=== PATIENT | female | born 1980 | race Caucasian/White ===

== ENCOUNTER 2024-12-31 09:52 | Emergency (ER) | payer MEDICAID, SELFPAY ==
--- NOTE | 2024-12-31 09:57 | ECG_ITS ---
[facility] 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 Measurements Intervals [place] Rate: 57 P: 142 [place]: 103 QRS: 106 QRSD: 105 T: 93 QT: 480 QTc: 470 Interpretive Statements ECTOPIC ATRIAL BRADYCARDIA WITH SHORT [place] INTERVAL WITH OCCASIONAL SUPRAVENTRICULAR PREMATURE COMPLEXES PATTERN CONSISTENT WITH PULMONARY DISEASE POSSIBLE RIGHT VENTRICULAR HYPERTROPHY [SOME/ALL OF: PROMINENT R IN V1, LATE TRANSITION, RAD, BHUPINDER, SSS] POSSIBLE INFERIOR MYOCARDIAL INFARCTION , PROBABLY OLD [30 ms Q WAVE IN II/aVF] ST DEVIATION AND MODERATE T-WAVE ABNORMALITY, CONSIDER ANTEROLATERAL ISCHEMIA [-0.1+ mV T-WAVE IN V3-V6] No previous ECG available for comparison Electronically Signed On 01-03-2025 22:09:24 PETROLOGY TEACHER by Darian Mccracken M.D. [id number]
[2024-12-31 10:00] VITALS: BP 130/90; PULSE 54; RESP 16; TEMP 36.8; O2SAT 98; BMI 26.5
[2024-12-31 11:08] VITALS: BP 114/62; PULSE 56; RESP 28; O2SAT 97
--- NOTE | 2024-12-31 11:09 | W.ED.ARRPALP ---
Documented by User: NELSY Ashby 12/31/24 13:00 HPI - Arrhythmia/Palpitations General: Chief Complaint: Arrhythmia/Palpitations Stated Complaint: hb is fast / cough Time Seen by Provider: 12/31/24 10:52 Source: patient and family Mode of arrival: ambulatory Limitations: no limitations History of Present Illness: Patient is a nice 44 female who is originally from [facility] recently moved to [place] here with concerns of persistent atrial fibrillation. Patient states she was diagnosed with atrial fibrillation years ago and it is normally paroxysmal. She states she takes rivaroxaban as well as metoprolol succinate 47.5mg 2 tablets twice daily (medication from [facility]). Patient states she knows when she goes in and out of atrial fibrillation. She states she is here in the emergency department today because she has never been in a-fib this long (about a month). Patient not having any lightheadedness or dizziness or passing out episodes. She arrives in no acute distress. She is not having any chest pain, shortness of breath, or difficulty breathing. MD complaint: irregular heart beat and atrial fibrillation Onset (ago): month(s) Duration: constant Severity: mild Arrhythmia history: atrial fibrillation Associated symptoms: Reports no associated symptoms; Deny nausea, pre-syncope, syncope or vomiting Related Data Home Medications Medication Instructions Recorded Confirmed Myloc Cr 47.5 mg PO QID 12/31/24 12/31/24 magnesium 200 mg tablet 200 mg PO QID 12/31/24 12/31/24 rivaroxaban 20 mg tablet (Xarelto) 20 mg PO DAILY 12/31/24 12/31/24 Allergies Allergy/AdvReac Type Severity Reaction Status Date / Time Penicillins Allergy ADR-Nausea Verified 12/31/24 10:06 Review of Systems Const: Denies: fever(s), chills, body aches, fatigue or malaise Card: Reports: irregular heart rhythm; Denies: chest pain, edema, lightheadedness, syncope, pre-syncope or orthopnea Resp: Denies: dyspnea GI: Denies: nausea or vomiting Neuro: Denies: headache(s) or dizziness Physical Exam Const: COMMON NORMALS: no acute distress, average body habitus, patient oriented x3, no limitations, healthy appearing, alert and well nourished GENERAL APPEARANCE: cooperative Neck/C-Spine: COMMON NORMALS: no JVD Chest: COMMONS NORMALS: normal inspection of the chest and normal palpation of entire chest wall Resp: COMMON NORMALS: normal respiratory effort and clear to auscultation bilaterally AUSCULTATION: clear to auscultation bilaterally Cardio: COMMON NORMALS: no JVD RATE: bradycardic RHYTHM: abnormal rhythm irregularly irregular Extremity: COMMON NORMALS: capillary refill normal, no clubbing, cyanosis or edema, no calf tenderness and no pedal edema GENERAL: Yes normal exam except as noted Neuro: COMMON NORMALS: patient oriented x3 SENSORIUM/ORIENTATION: Yes alert Course Vital Signs: Vital signs: Vital Signs Temperature 98.2 F 12/31/24 10:00 Pulse Rate 51 L 12/31/24 12:33 Respiratory Rate 22 H 12/31/24 11:35 Blood Pressure 107/62 12/31/24 12:33 Pulse Oximetry 93 12/31/24 12:33 Oxygen Delivery Me thod Room Air 12/31/24 10:00 MDM - Arrhythmia/Palpitations Medical Decision Making Patient here with a longstanding history of paroxysmal atrial fibrillation. Patient concerned that she has had persistent symptoms over the past month which is abnormal for her. He is not having any concerning symptoms on history or physical exam. Vitals here are stable apart from she has (at times) bradycardia with rates anywhere from 40s to 60s. Spoke to Dr. Mcgraw-we will have her decrease her current dose of her rate drug, if needed, based on rates at home. She will continue with her anticoagulation and we will have case management get her set up with cardiology. Return ED precautions discussed. Medical Records I reviewed the patient's medical records. Lab Data I reviewed the patient's lab results. 12/31/24 11:05 12/31/24 11:05 Laboratory Results WBC 4.14 10^3/uL (3.29-11.43) 12/31/24 11:05 RBC 3.91 10^6/uL (3.85-5.65) 12/31/24 11:05 Hgb 11.40 g/dL (11.27-16.99) 12/31/24 11:05 Hct 35.5 % (36-47) L 12/31/24 11:05 MCV 90.8 fl (85-98) 12/31/24 11:05 MCH 29.2 pg (27-33) 12/31/24 11:05 MCHC 32.1 g/dL (30-55) 12/31/24 11:05 RDW 13.4 % (12.1-15.1) 12/31/24 11:05 Plt Count 253 10^3/cmm (157-399) 12/31/24 11:05 MPV 9.4 fL (7.4-10.4) 12/31/24 11:05 Neut % (Auto) 43.6 % 12/31/24 11:05 Lymph % (Auto) 38.6 % 12/31/24 11:05 Ellis % (Auto) 14.0 % 12/31/24 11:05 Eos % (Auto) 1.9 % 12/31/24 11:05 Baso % (Auto) 0.7 % 12/31/24 11:05 Neut # (Auto) 1.80 10^3/uL (1.8-7.7) 12/31/24 11:05 Lymph # (Auto) 1.6 10^3/uL (0.8-4.8) 12/31/24 11:05 Ellis # (Auto) 0.6 10^3/uL (0.2-0.9) 12/31/24 11:05 Eos # (Auto) 0.1 10^3/uL (0.0-0.8) 12/31/24 11:05 Baso # (Auto) 0.0 10^3/uL (0.0-0.1) 12/31/24 11:05 Nucleated RBC % (auto) 0 % 12/31/24 11:05 Nucleated RBCs # 0.0 /100WBC 12/31/24 11:05 Sodium 136 mmol/L (136-145) 12/31/24 11:05 Potassium 4.0 mmol/L (3.5-5.1) 12/31/24 11:05 Chloride 99 mmol/L (98-107) 12/31/24 11:05 Carbon Dioxide 24 mmol/L (22-29) 12/31/24 11:05 Anion Gap 17.0 (5-19) 12/31/24 11:05 BUN 14 mg/dL (6-20) 12/31/24 11:05 Creatinine 0.7 mg/dL (0.5-0.9) 12/31/24 11:05 GFR Calculation 90.9 mL/min (90-130) 12/31/24 11:05 Glucose 101 mg/dL (65-115) 12/31/24 11:05 Calculated Osmolality 283 mOsm/kg (285-295) L 12/31/24 11:05 Calcium 8.9 mg/dL (8.5-10.5) 12/31/24 11:05 Total Bilirubin 0.3 mg/dL (0.15-1.2) 12/31/24 11:05 AST 33 U/L (0-32) H 12/31/24 11:05 ALT 51 U/L (0-33) H 12/31/24 11:05 Alkaline Phosphatase 98 U/L (35-105) 12/31/24 11:05 Total Protein 7.0 g/dL (6.6-8.7) 12/31/24 11:05 Albumin 3.9 g/dL (3.5-5.2) 12/31/24 11:05 Globulin 3.1 g/dL (1.3-4.6) 12/31/24 11:05 TSH 1.11 uIU/mL (0.27-4.20) 12/31/24 11:05 Urine Color Yellow (Yellow) 12/31/24 11:58 Urine Appearance Clear (CLEAR) 12/31/24 11:58 Urine pH 5.5 (5-7) 12/31/24 11:58 Ur Specific [place] 1.008 (1.005-1.030) 12/31/24 11:58 Urine Protein Negative (Negative) 12/31/24 11:58 Urine Glucose (UA) Negative (Normal) 12/31/24 11:58 Urine Ketones Negative (Negative) 12/31/24 11:58 Urine Blood Negative (Negative) 12/31/24 11:58 Urine Nitrate Negative (Negative) 12/31/24 11:58 Urine Bilirubin Negative (Negative) 12/31/24 11:58 Urine Urobilinogen 0.2 mg/dL (Negative) 12/31/24 11:58 Ur Leukocyte Esterase Negative (Negative) 12/31/24 11:58 Urine RBC 0-2 /hpf (0-2) 12/31/24 11:58 Urine WBC 0-5 /hpf (0-5) 12/31/24 11:58 Ur Squamous Epith Cells 0-5 /hpf (0-5) 12/31/24 11:58 Amorphous Sediment Not Reportable 12/31/24 11:58 Urine Bacteria None seen /hpf (NONE) 12/31/24 11:58 Hyaline Casts 0-4 /lpf H 12/31/24 11:58 No radiology studies performed this visit Discharge Plan Discharge Patient Disposition: Home Clinical Impression: Atrial fibrillation Qualifiers: Atrial fibrillation type: persistent (not longstanding) Qualified Code(s): I48.19 - Other persistent atrial fibrillation Condition: Stable Prescriptions: No Action magnesium 200 mg Tablet 200 mg PO QID Xarelto 20 mg Tablet 20 mg PO DAILY Rx Instructions: must administer with evening meal Myloc Cr 47.5 mg PO QID Discharge Orders: Discharge ED (Routine); Ordered 12/31/24 Ordered By: Micaela Miranda Patient Instructions: Atrial Fibrillation Activity Restrictions/Additional Instructions: As we discussed, I placed a cardiology follow-up for further evaluation of your atrial fibrillation. Please continue to monitor rates at home. If rates fall below 50 then I would decrease your metoprolol to one tab twice daily instead of your normal dose of two tabs twice daily. You may return to the emergency department for rates consistently over 100, lightheadedness/dizziness/passing out episodes, or any other concerns you may have. Coding Level of Care Code ED Para Professional for Chg Fwd Documented by User: Rashaad Mcgraw DO 12/31/24 13:39 HPI - Arrhythmia/Palpitations General: Chief Complaint: Arrhythmia/Palpitations Stated Complaint: hb is fast / cough Time Seen by Provider: 12/31/24 10:52 Related Data Home Medications Medication Instructions Recorded Confirmed Myloc Cr 47.5 mg PO QID 12/31/24 12/31/24 magnesium 200 mg tablet 200 mg PO QID 12/31/24 12/31/24 rivaroxaban 20 mg tablet (Xarelto) 20 mg PO DAILY 12/31/24 12/31/24 Allergies Allergy/AdvReac Type Severity Reaction Status Date / Time Penicillins Allergy ADR-Nausea Verified 12/31/24 10:06 Course Vital Signs: Vital signs: Vital Signs Temperature 98.2 F 12/31/24 10:00 Pulse Rate 51 L 12/31/24 12:33 Respiratory Rate 22 H 12/31/24 11:35 Blood Pressure 107/62 12/31/24 12:33 Pulse Oximetry 93 12/31/24 12:33 Oxygen Delivery Me thod Room Air 12/31/24 10:00 MDM - Arrhythmia/Palpitations Medical Decision Making Patient here with a longstanding history of paroxysmal atrial fibrillation. Patient concerned that she has had persistent symptoms over the past month which is abnormal for her. He is not having any concerning symptoms on history or physical exam. Vitals here are stable apart from she has (at times) bradycardia with rates anywhere from 40s to 60s. Spoke to Dr. Mcgraw-we will have her decrease her current dose of her rate drug, if needed, based on rates at home. She will continue with her anticoagulation and we will have case management get her set up with cardiology. Return ED precautions discussed. Chart reviewed and patient discussed with midlevel. Agree with assessment and plan. Lab Data 12/31/24 11:05 12/31/24 11:05 Laboratory Results WBC 4.14 10^3/uL (3.29-11.43) 12/31/24 11:05 RBC 3.91 10^6/uL (3.85-5.65) 12/31/24 11:05 Hgb 11.40 g/dL (11.27-16.99) 12/31/24 11:05 Hct 35.5 % (36-47) L 12/31/24 11:05 MCV 90.8 fl (85-98) 12/31/24 11:05 MCH 29.2 pg (27-33) 12/31/24 11:05 MCHC 32.1 g/dL (30-55) 12/31/24 11:05 RDW 13.4 % (12.1-15.1) 12/31/24 11:05 Plt Count 253 10^3/cmm (157-399) 12/31/24 11:05 MPV 9.4 fL (7.4-10.4) 12/31/24 11:05 Neut % (Auto) 43.6 % 12/31/24 11:05 Lymph % (Auto) 38.6 % 12/31/24 11:05 Ellis % (Auto) 14.0 % 12/31/24 11:05 Eos % (Auto) 1.9 % 12/31/24 11:05 Baso % (Auto) 0.7 % 12/31/24 11:05 Neut # (Auto) 1.80 10^3/uL (1.8-7.7) 12/31/24 11:05 Lymph # (Auto) 1.6 10^3/uL (0.8-4.8) 12/31/24 11:05 Ellis # (Auto) 0.6 10^3/uL (0.2-0.9) 12/31/24 11:05 Eos # (Auto) 0.1 10^3/uL (0.0-0.8) 12/31/24 11:05 Baso # (Auto) 0.0 10^3/uL (0.0-0.1) 12/31/24 11:05 Nucleated RBC % (auto) 0 % 12/31/24 11:05 Nucleated RBCs # 0.0 /100WBC 12/31/24 11:05 Sodium 136 mmol/L (136-145) 12/31/24 11:05 Potassium 4.0 mmol/L (3.5-5.1) 12/31/24 11:05 Chloride 99 mmol/L (98-107) 12/31/24 11:05 Carbon Dioxide 24 mmol/L (22-29) 12/31/24 11:05 Anion Gap 17.0 (5-19) 12/31/24 11:05 BUN 14 mg/dL (6-20) 12/31/24 11:05 Creatinine 0.7 mg/dL (0.5-0.9) 12/31/24 11:05 GFR Calculation 90.9 mL/min (90-130) 12/31/24 11:05 Glucose 101 mg/dL (65-115) 12/31/24 11:05 Calculated Osmolality 283 mOsm/kg (285-295) L 12/31/24 11:05 Calcium 8.9 mg/dL (8.5-10.5) 12/31/24 11:05 Total Bilirubin 0.3 mg/dL (0.15-1.2) 12/31/24 11:05 AST 33 U/L (0-32) H 12/31/24 11:05 ALT 51 U/L (0-33) H 12/31/24 11:05 Alkaline Phosphatase 98 U/L (35-105) 12/31/24 11:05 Total Protein 7.0 g/dL (6.6-8.7) 12/31/24 11:05 Albumin 3.9 g/dL (3.5-5.2) 12/31/24 11:05 Globulin 3.1 g/dL (1.3-4.6) 12/31/24 11:05 TSH 1.11 uIU/mL (0.27-4.20) 12/31/24 11:05 Urine Color Yellow (Yellow) 12/31/24 11:58 Urine Appearance Clear (CLEAR) 12/31/24 11:58 Urine pH 5.5 (5-7) 12/31/24 11:58 Ur Specific [place] 1.008 (1.005-1.030) 12/31/24 11:58 Urine Protein Negative (Negative) 12/31/24 11:58 Urine Glucose (UA) Negative (Normal) 12/31/24 11:58 Urine Ketones Negative (Negative) 12/31/24 11:58 Urine Blood Negative (Negative) 12/31/24 11:58 Urine Nitrate Negative (Negative) 12/31/24 11:58 Urine Bilirubin Negative (Negative) 12/31/24 11:58 Urine Urobilinogen 0.2 mg/dL (Negative) 12/31/24 11:58 Ur Leukocyte Esterase Negative (Negative) 12/31/24 11:58 Urine RBC 0-2 /hpf (0-2) 12/31/24 11:58 Urine WBC 0-5 /hpf (0-5) 12/31/24 11:58 Ur Squamous Epith Cells 0-5 /hpf (0-5) 12/31/24 11:58 Amorphous Sediment Not Reportable 12/31/24 11:58 Urine Bacteria None seen /hpf (NONE) 12/31/24 11:58 Hyaline Casts 0-4 /lpf H 12/31/24 11:58 Discharge Plan Discharge Patient Disposition: Home Clinical Impression: Atrial fibrillation Qualifiers: Atrial fibrillation type: persistent (not longstanding) Qualified Code(s): I48.19 - Other persistent atrial fibrillation Condition: Stable Prescriptions: No Action magnesium 200 mg Tablet 200 mg PO QID Xarelto 20 mg Tablet 20 mg PO DAILY Rx Instructions: must administer with evening meal Myloc Cr 47.5 mg PO QID Discharge Orders: Discharge ED (Routine); Ordered 12/31/24 Ordered By: Micaela Miranda Patient Instructions: Atrial Fibrillation Activity Restrictions/Additional Instructions: As we discussed, I placed a cardiology follow-up for further evaluation of your atrial fibrillation. Please continue to monitor rates at home. If rates fall below 50 then I would decrease your metoprolol to one tab twice daily instead of your normal dose of two tabs twice daily. You may return to the emergency department for rates consistently over 100, lightheadedness/dizziness/passing out episodes, or any other concerns you may have. Coding Level of Care Code ED Para Professional for [place]
[2024-12-31 11:13] LABS: Basophils % 0.7 %; Eosinophils # 0.1 10^3/uL (0.0-0.8); Eosinophils % 1.9 %; Hematocrit 35.5 % (36-47); Lymphocytes # 1.6 10^3/uL (0.8-4.8); Lymphocytes % 38.6 %; Mean Corpuscular HGB Conc 32.1 g/dL (30-55); Mean Corpuscular Hemoglobin 29.2 pg (27-33); Mean Corpuscular Volume 90.8 fl (85-98); Mean Platelet Volume 9.4 fL (7.4-10.4); Monocytes # 0.6 10^3/uL (0.2-0.9); Neutrophils % 43.6 %; Nucleated Red Blood Cells % 0 %; Platelet Count 253 10^3/cmm (157-399); Red Blood Count 3.91 10^6/uL (3.85-5.65); Red Cell Distribution Width 13.4 % (12.1-15.1); White Blood Count 4.14 10^3/uL (3.29-11.43)
[2024-12-31 11:35] VITALS: BP 101/53; PULSE 53; RESP 22; O2SAT 94
[2024-12-31 11:41] LABS: Alanine Aminotransferase 51 U/L (0-33); Albumin Level 3.9 g/dL (3.5-5.2); Alkaline Phosphatase 98 U/L (35-105); Aspartate Amino Transferase 33 U/L (0-32); Blood Urea Nitrogen 14 mg/dL (6-20); Calcium 8.9 mg/dL (8.5-10.5); Carbon Dioxide 24 mmol/L (22-29); Chloride 99 mmol/L (98-107); Creatinine Clr Calc Pharmacy 94.9662; Globulin 3.1 g/dL (1.3-4.6); Glomerular Filtration Rate 90.9 mL/min (90-130); Glucose 101 mg/dL (65-115); Osmolality Calculated 283 mOsm/kg (285-295); Sodium 136 mmol/L (136-145); Thyroid Stimulating Hormone 1.11 uIU/mL (0.27-4.20); Total Bilirubin 0.3 mg/dL (0.15-1.2)
[2024-12-31 12:20] LABS: Bilirubin Urine Negative (Negative); Blood Urine Negative (Negative); Glucose Urine UA Negative (Normal); Ketones Urine Negative (Negative); Leukocyte Esterase Urine Negative (Negative); Nitrate Urine Negative (Negative); Protein Urine Negative (Negative); Specific Gravity, Urine 1.008 (1.005-1.030); Urine Appearance Clear (CLEAR); Urine Color Yellow (Yellow); Urobilinogen Urine 0.2 mg/dL (Negative); pH Urine 5.5 (5-7)
[2024-12-31 12:22] LABS: Add Urine Microscopic? YES; Bacteria Urine None Seen /hpf; Hyaline Casts Urine 0-4 /lpf; RBC Urine 0-2 /hpf (0-2); Squamous Epithelial Cell Urine 0-5 /hpf (0-5); WBC Urine 0-5 /hpf (0-5)
[2024-12-31 12:33] VITALS: BP 107/62; PULSE 51; O2SAT 93
== END 2024-12-31 12:35 | disposition home or self-care (01) ==
PROVIDERS: Family Medicine; Emergency Provider Physician Assistant
DX: I48.19 Other persistent atrial fibrillation (principal)
CPT/HCPCS: 80053; 81001; 84443; 85025; 93005; 99284

== ENCOUNTER 2025-02-01 11:34 | Inpatient (IN) | payer MEDICAID, SELFPAY ==
[2025-02-01] VITALS (30 sets, daily range): BP systolic 92–129; BP diastolic 48–88; PULSE 65–140; RESP 14–85; TEMP 36.6–36.7; O2SAT 93–100; BMI 26.5
--- NOTE | 2025-02-01 11:43 | ECG_ITS ---
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 Measurements Intervals [place] Rate: 144 P: 0 [place]: 0 QRS: -59 QRSD: 85 T: 115 QT: 299 QTc: 464 Interpretive Statements ATRIAL FIBRILLATION WITH RAPID VENTRICULAR RESPONSE PATTERN CONSISTENT WITH PULMONARY DISEASE LEFT ANTERIOR FASCICULAR BLOCK [QRS AXIS <= -45, QR IN I, RS IN II] MODERATE VOLTAGE CRITERIA FOR LVH, CONSIDER NORMAL VARIANT [MEETS CRITERIA IN ONE OF: R(aVL), S(V1), R(V5), R(V5/V6)+S(V1)] ST DEVIATION AND MODERATE T-WAVE ABNORMALITY, CONSIDER LATERAL ISCHEMIA [-0.1+ mV T-WAVE IN I/aVL/V5/V6] Compared to ECG 12/31/2024 09:57:17 Left anterior fascicular block now present Bradycardia, nonsinus no longer present Possible ischemia still present Electronically Signed On 02-02-2025 18:02:30 EDUCATION SUPERVISOR by Darian Mccracken M.D. [email or web address] [email or web address]
--- NOTE | 2025-02-01 11:58 | XR_ITS ---
WS: [id number] XR chest 1V portable [id number] REASON FOR EXAM: palpitations FINDINGS: No previous examination for comparison. Configuration of the mediastinum suggest possible congenital variation of the aortic arch and great vessels. The heart is significantly enlarged. There is mild to moderate central pulmonary venous congestion. No acute pulmonary parenchymal or pleural abnormality. Mild degenerative spondylosis of the thoracic spine. XR/XR chest 1V portable [id number] IMPRESSION: Question of congenital variant of the aortic arch and great vessel. Significant cardiomegaly. No acute pulmonary parenchymal or pleural abnormality.
[2025-02-01 12:04] LABS: Basophils # 0.1 10^3/uL (0.0-0.1); Basophils % 0.7 %; Eosinophils # 0.1 10^3/uL (0.0-0.8); Eosinophils % 1.1 %; Hematocrit 40.6 % (36-47); Lymphocytes % 31.1 %; Mean Corpuscular HGB Conc 31.8 g/dL (30-55); Mean Corpuscular Volume 91.2 fl (85-98); Mean Platelet Volume 9.5 fL (7.4-10.4); Monocytes # 0.7 10^3/uL (0.2-0.9); Monocytes % 7.2 %; Neutrophils # 5.66 10^3/uL (1.8-7.7); Neutrophils % 59.5 %; Nucleated Red Blood Cells % 0 %; Platelet Count 273 10^3/cmm (157-399); Red Blood Count 4.45 10^6/uL (3.85-5.65); Red Cell Distribution Width 13.8 % (12.1-15.1); White Blood Count 9.52 10^3/uL (3.29-11.43)
[2025-02-01] MEDS: dilTIAZem 5 mg/mL SDV 5 mL 20 MG IVP (12:05)
[2025-02-01] MEDS: dilTIAZem 100 MG in sodium chloride 0.9% (add-van) 100 ML IV (12:06)
--- NOTE | 2025-02-01 12:20 | W.ED.ARRPALP ---
HPI - Arrhythmia/Palpitations General: Chief Complaint: Arrhythmia/Palpitations Stated Complaint: high heart rate Time Seen by Provider: 02/01/25 11:56 History of Present Illness: 45-year-old woman with a history of paroxysmal atrial fibrillation who has recently moved here from [facility] who presents to the emergency room with tachycardia and atrial fibrillation. She says this is been going on for a few days and she been running in the 120s but when she got up to 160 and 180 she felt like she needed to come in. Some mild shortness of breath. No chest pain. No altered mental status. She is anticoagulated with Xarelto. She was seen here in the emergency room recently and had plans for cardiology appointment in the near future. However when her heart rate got up as high as she felt she needed to come in. Related Data Home Medications ?Medication ?Instructions ?Recorded ?Confirmed Myloc Cr 47.5 mg PO QID 12/31/24 02/01/25 rivaroxaban 20 mg tablet (Xarelto) 20 mg PO DAILY 12/31/24 02/01/25 Allergies Allergy/AdvReac Type Severity Reaction Status Date / Time Penicillins Allergy ADR-Nausea Verified 12/31/24 10:06 Review of Systems Narrative: Constitutional symptoms: Negative except as documented in HPI. Skin symptoms: Negative except as documented in HPI. Eye symptoms: Negative except as documented in HPI. ENMT symptoms: Negative except as documented in HPI. Respiratory symptoms: Negative except as documented in HPI. Cardiovascular symptoms: Negative except as documented in HPI. Gastrointestinal symptoms: Negative except as documented in HPI. Genitourinary symptoms: Negative except as documented in HPI. Musculoskeletal symptoms: Negative except as documented in HPI. Neurologic symptoms: Negative except as documented in HPI. Psychiatric symptoms: Negative except as documented in HPI. Endocrine symptoms: Negative except as documented in HPI. Physical Exam Narrative: EXAM NARRATIVE: General: Alert, no acute distress. Skin: Warm, dry. Head: Normocephalic, atraumatic. Neck: Supple, trachea midline. Eye: Extraocular movements are intact. Ears, nose, mouth and throat: mucosa moist. Cardiovascular: Irregularly irregular, tachycardic, Normal peripheral perfusion. Respiratory: Lungs are clear to auscultation, respirations are non-labored, breath sounds are equal, Symmetrical chest wall expansion. Gastrointestinal: Soft, Nontender, Non distended Musculoskeletal: Normal ROM, no deformity. Neurological: Alert and oriented, No focal neurological deficit observed. Psychiatric: Cooperative, appropriate mood & affect. Course Vital Signs: Vital signs: Vital Signs Temperature 97.8 F 02/01/25 11:44 Pulse Rate 140 H 02/01/25 12:02 Respiratory Rate 18 02/01/25 12:02 Blood Pressure 125/82 02/01/25 12:02 Pulse Oximetry 100 02/01/25 12:02 Oxygen Delivery Me thod Room Air 02/01/25 12:02 MDM - Arrhythmia/Palpitations Medical Decision Making Medical decision making: Differential diagnosis including but not limited to and based on the above HPI, review of systems and physical exam: for patient with palpitations: atrial fibrillation with rapid ventricular response. ventricular tachycardia. sinus tachycardia. PVCs. also concern for underlying issues causing tachycardia. Infection, electrolyte abnormalities and thyroid issues Orders placed to evaluate differential diagnosis based on the above differential, HPI and physical exam EKG: Time 1143. Rate 144. Atrial fibrillation with rapid ventricular response, No ST-T changes, no ectopy, This was reviewed and interpreted by myself the ER physician at 11:50 AM Chest x-ray: Mild cardiomegaly. No acute process. This was reviewed and interpreted by myself the emergency room physician. I also reviewed the radiology report. Lab Review: Laboratory results were reviewed and interpreted by myself the emergency room physician. No leukocytosis. No anemia. No renal failure. Magnesium and TSH are within normal limits. proBNP is slightly elevated at 1030. No previous to compare. I reviewed the patient's medical record. Reexamination: Patient has had some decrease in her heart rate down to the 1 teens initially. Now running in the mid 90s. No chest pain. No altered mental status. No increased work of breathing. Assessment and plan: Atrial fibrillation with rapid ventricular response -I discussed the patient with the hospitalist on-call who is admitting the patient. - Discussed findings and plan with patient. Answered any questions. - All laboratory values were reviewed and interpreted personally by myself, the ER physician - All imaging was reviewed and interpreted personally by myself, the ER physician. - Evaluation and treatment of this problem were appropriate in the emergency setting Lab Data 02/01/25 11:57 02/01/25 11:57 Radiology Impressions Chest X-Ray 02/01/25 11:58 IMPRESSION: Question of congenital variant of the aortic arch and great vessel. Significant cardiomegaly. No acute pulmonary parenchymal or pleural abnormality. Laboratory Results WBC 9.52 10^3/uL (3.29-11.43) 02/01/25 11:57 RBC 4.45 10^6/uL (3.85-5.65) 02/01/25 11:57 Hgb 12.90 g/dL (11.27-16.99) 02/01/25 11:57 Hct 40.6 % (36-47) 02/01/25 11:57 MCV 91.2 fl (85-98) 02/01/25 11:57 MCH 29.0 pg (27-33) 02/01/25 11:57 MCHC 31.8 g/dL (30-55) 02/01/25 11:57 RDW 13.8 % (12.1-15.1) 02/01/25 11:57 Plt Count 273 10^3/cmm (157-399) 02/01/25 11:57 MPV 9.5 fL (7.4-10.4) 02/01/25 11:57 Neut % (Auto) 59.5 % 02/01/25 11:57 Lymph % (Auto) 31.1 % 02/01/25 11:57 [place] % (Auto) 7.2 % 02/01/25 11:57 Eos % (Auto) 1.1 % 02/01/25 11:57 Baso % (Auto) 0.7 % 02/01/25 11:57 Neut # (Auto) 5.66 10^3/uL (1.8-7.7) 02/01/25 11:57 Lymph # (Auto) 3.0 10^3/uL (0.8-4.8) 02/01/25 11:57 [place] # (Auto) 0.7 10^3/uL (0.2-0.9) 02/01/25 11:57 Eos # (Auto) 0.1 10^3/uL (0.0-0.8) 02/01/25 11:57 Baso # (Auto) 0.1 10^3/uL (0.0-0.1) 02/01/25 11:57 Nucleated RBC % (auto) 0 % 02/01/25 11:57 Nucleated RBCs # 0.0 /100WBC 02/01/25 11:57 Sodium 138 mmol/L (136-145) 02/01/25 11:57 Potassium 4.2 mmol/L (3.5-5.1) 02/01/25 11:57 Chloride 102 mmol/L (98-107) 02/01/25 11:57 Carbon Dioxide 26 mmol/L (22-29) 02/01/25 11:57 Anion Gap 14.2 (5-19) 02/01/25 11:57 BUN 14 mg/dL (6-20) 02/01/25 11:57 Creatinine 0.6 mg/dL (0.5-0.9) 02/01/25 11:57 GFR Calculation 108.1 mL/min (90-130) 02/01/25 11:57 Glucose 98 mg/dL (65-115) 02/01/25 11:57 Calculated Osmolality 286 mOsm/kg (285-295) 02/01/25 11:57 Calcium 9.4 mg/dL (8.5-10.5) 02/01/25 11:57 Magnesium 2.2 mg/dL (1.7-2.3) 02/01/25 11:57 Total Bilirubin 0.7 mg/dL (0.15-1.2) 02/01/25 11:57 AST 26 U/L (0-32) 02/01/25 11:57 ALT 44 U/L (0-33) H 02/01/25 11:57 Alkaline Phosphatase 81 U/L (35-105) 02/01/25 11:57 NT-Pro-B Natriuret Pep 1030 pg/mL (0-125) H 02/01/25 11:57 Total Protein 7.5 g/dL (6.6-8.7) 02/01/25 11:57 Albumin 4.4 g/dL (3.5-5.2) 02/01/25 11:57 Globulin 3.1 g/dL (1.3-4.6) 02/01/25 11:57 TSH 1.13 uIU/mL (0.27-4.20) 02/01/25 11:57 Amorphous Sediment Not Reportable 02/01/25 12:49 All radiology interpretation(s) finalized by discharge Discharge Plan Discharge Patient Disposition: Admitted As Inpatient Clinical Impression: Atrial fibrillation with rapid ventricular response Condition: Stable Coding Level of Care Code ED Media Account Executive for [place]
[2025-02-01 12:33] LABS: Alanine Aminotransferase 44 U/L (0-33); Albumin Level 4.4 g/dL (3.5-5.2); Alkaline Phosphatase 81 U/L (35-105); Anion Gap 14.2 (5-19); Aspartate Amino Transferase 26 U/L (0-32); Blood Urea Nitrogen 14 mg/dL (6-20); Calcium 9.4 mg/dL (8.5-10.5); Carbon Dioxide 26 mmol/L (22-29); Chloride 102 mmol/L (98-107); Creatinine Clr Calc Pharmacy 109.6398; Globulin 3.1 g/dL (1.3-4.6); Glomerular Filtration Rate 108.1 mL/min (90-130); Glucose 98 mg/dL (65-115); Magnesium 2.2 mg/dL (1.7-2.3); NT Pro B Type Natriuretic Pept 1030 pg/mL (0-125); Osmolality Calculated 286 mOsm/kg (285-295); Potassium 4.2 mmol/L (3.5-5.1); Sodium 138 mmol/L (136-145); Thyroid Stimulating Hormone 1.13 uIU/mL (0.27-4.20); Total Bilirubin 0.7 mg/dL (0.15-1.2); Total Protein 7.5 g/dL (6.6-8.7)
[2025-02-01 13:01] LABS: Bacteria Urine None Seen /hpf; Hyaline Casts Urine 0-4 /lpf; RBC Urine 0-2 /hpf (0-2); Squamous Epithelial Cell Urine 0-5 /hpf (0-5)
[2025-02-01 13:08] LABS: Bilirubin Urine Negative (Negative); Blood Urine Negative (Negative); Glucose Urine UA Negative (Normal); Ketones Urine Negative (Negative); Leukocyte Esterase Urine Trace (Negative); Nitrate Urine Negative (Negative); Protein Urine Negative (Negative); Specific Gravity, Urine 1.012 (1.005-1.030); Urine Appearance Clear (CLEAR); Urine Color Yellow (Yellow); pH Urine 5.5 (5-7)
--- NOTE | 2025-02-01 15:02 | USCV_ITS ---
Stephanie Chang Age: 45 Gender: F : 1980 Exam Date: 02/01/2025 16:30 Ordering Phys: Roger Montero MD Technologist: Ranjeet Jerome [place] [facility] [place]: afib chf BP: 109 / 75 HR: 107 Rhythm: Sinus Technical Quality: Adequate MEASUREMENTS (Male / Female) Normal Values 2D ECHO LV Diastolic Diameter PLAX 4.0 cm 4.2 - 5.9 / 3.9 - 5.3 cm IVS Diastolic Thickness 1.5 cm 0.6 - 1.0 / 0.6 - 0.9 cm IVS Systolic Thickness 1.6 cm LVPW Diastolic Thickness 2.3 cm 0.6 - 1.0 / 0.6 - 0.9 cm LVPW Systolic Thickness 2.5 cm LV Ejection Fraction 2D Teich 33.0 % LV Ejection Fraction MOD 4C 47.6 % LV Ejection Fraction MOD 2C 38.8 % LV Ejection Fraction 2C AL 37.5 % RA Systolic Volume 4C AL 34.1 ml RA Systolic Volume 4C MOD 36.2 ml LA Sys Volume AL 28.9 cm cubed LA Sys Volume Index AL 16.5 cm cubed/m squared IVC Diameter 1.1 cm M-MODE LA Ao Ratio MM 1.3 AV Cusp Separation MM 1.4 cm DOPPLER AV Peak Velocity 130.0 cm/s LVOT Peak Velocity 103.0 cm/s MV Peak Velocity 182.0 cm/s MV Area PHT 8.0 cm squared Mitral E to A Ratio 60.4 TV Peak Velocity 336.5 cm/s TR Peak Velocity 365.0 cm/s TR Peak Gradient 53.3 mmHg TR Mean Velocity 287.0 cm/s TR Mean Gradient 35.6 mmHg TR Velocity Time Integral 85.2 cm PV Peak Velocity 88.0 cm/s RV Ejection Time 0.3 s FINDINGS Left Ventricle Technically limited echocardiogram because of poor ultrasonic windows. Left ventricle is normal in size. LV systolic function is mildly reduced with EF of 40-45%. Mild global hypokinesis. Right Ventricle Normal in size and function Right Atrium Normal in size Left Atrium Normal in size Mitral Valve Mild mitral annular calcification. Moderate mitral regurgitation. Moderate mitral stenosis with mean gradient across mitral valve of 8.8mmHg. Aortic Valve Grossly normal aortic valve. No significant stenosis or regurgitation. Tricuspid Valve Mild tricuspid regurgitation. RVSP is 35 to 40 mmHg. This is consistent with mild pulmonary hypertension. Pulmonic Valve Mild pulmonic regurgitation. Pericardium Normal Aorta Normal in size IVC Appears to be normal CONCLUSIONS Technically limited echocardiogram because of poor ultrasonic windows. . LV systolic function is mildly reduced with EF of 40-45% Moderate mitral regurgitation. Moderate mitral stenosis with mean gradient across mitral valve of 8.8mmHg. Mild tricuspid regurgitation. Mild pulmonary hypertension Mild pulmonic regurgitation. No comparison studies are available. Darian Mccracken MD (Electronically Signed) Final Date: 02 February 2025 12:22 S
[2025-02-01 15:14] LABS: Lactic Sepsis W/Reflex 1.1 mmol/L (0.5-2.2)
[2025-02-01 15:21] LABS: D Dimer 0.46 ug/mLFEU (0-0.59)
[2025-02-01 15:27] LABS: Estmated Average Glucose 114; Hemoglobin A1C 5.6 % (4.0-6.0)
[2025-02-01 15:32] LABS: Procalcitonin 0.04 ng/mL (0-0.5)
[2025-02-01 15:39] LABS: Iron 76 ug/dL (37-145); Percent Saturation 25.1 % (20-50); Thyroid Stimulating Hormone 1.13 uIU/mL (0.27-4.20); Total Iron Binding Capacity 302 mcg/dl; Unsaturated Iron Binding 226 ug/dL (112-347); Vitamin B12 1037 pg/mL (232-1245)
--- NOTE | 2025-02-01 15:46 | PC.NURSE ---
pt refusing Lovenox shot at this time d/t taking anticoagulant today. pt wanting to speak with admitting physician and look up medications prior to taking.
--- NOTE | 2025-02-01 15:54 | PC.NURSE ---
this nurse spoke with Dr. Turcios with pt's concerns of wanting to refuse medications and look them up.
[2025-02-01 16:27] LABS: Amphetamines Screen Urine Negative (Negative); Barbiturates Screen Urine Negative (Negative); Benzodiazepines Screen Urine Negative (Negative); Cocaine Screen Urine Negative (Negative); Opiate Screen Urine Negative (Negative); PCP Screen Urine Negative (Negative); THC Screen Urine Negative (Negative)
--- NOTE | 2025-02-01 16:31 | PC.NURSE ---
per Dr. Montero to increase Cardizem to 15mLs/hr
[2025-02-01] MEDS: metoprolol tartrate 25 mg Tablet PO ×2 (16:32→21:24)
--- NOTE | 2025-02-01 16:45 | PC.NURSE ---
attempted to call report, per Mia in [facility] to call back when room/nurse ready
--- NOTE | 2025-02-01 17:01 | P.HP_ITS ---
Providers/Chief Complaint 2 Admitting Physician: eVronika Turcios MD Chief Complaint: high heart rate History of Present Illness Stephanie Chang is a 45 year old female who recently moved from [facility] to [place] in October 2024 with past medical history of atrial fibrillation post cardioversion back in 2023 presents to the ER because of palpitations which has been ongoing since last night. When she checked her heart rate at home which was more than 110 sociability the ER. Patient was in the ER last month with palpitations as well when she was found to have bradycardia and her dose of metoprolol was decreased at that time. Patient has prescriptions from nasal end. It seems she is supposed to take metoprolol succinate 47.5 mg 3 times a day but was decreased up to 2 times a day in December 2024. In the ER she was found to be having atrial fibrillation with rapid ventricular response and she was placed on Cardizem drip. Currently on Cardizem drip of 12.5 with heart rate running in low 90s to low 100s. Saturating well on room air. Denies any nausea, vomiting, headache, chest pain. Review of Systems 2 General: Reports: 10 or more systems reviewed and unremarkable except in HPI and below Const: Denies: fever(s), chills, body aches, change in appetite, change in weight, malaise, night sweats, diaphoresis, change in sleep pattern, daytime sleepiness or snoring Eyes: Denies: change in vision, blurry vision, photophobia, eye discomfort or eye discharge ENMT: Denies: throat pain, enlarged tonsils, hoarseness, mouth pain, oral sores, dry mouth, tinnitus, nasal congestion or post nasal drip Card: Denies: chest pain, palpitations, irregular heart rhythm, edema, swelling of feet/ankles, lightheadedness, syncope, pre-syncope, dyspnea on exertion, orthopnea, leg pain with exertion or acrocyanosis Resp: Denies: dyspnea, productive cough, non-productive cough, wheezing, stridor, pain on inspiration, change in phlegm color, hemoptysis or chest congestion GI: Denies: abdominal pain, nausea, vomiting, hematemesis, coffee ground emesis, dysphagia, heartburn, diarrhea, constipation, bloating, GI cramping, change in bowel habits, pain on defecation, hematochezia or melena : Denies: flank pain, dysuria, urinary frequency, urinary urgency, urinary hesitancy, nocturia or hematuria Musc: Denies: neck pain, back pain, extremity pain, joint pain, joint swelling, joint redness, joint stiffness or limited range of motion Neuro: Denies: headache(s), numbness in extremities, weakness in extremities, sensory changes, lack of coordination, difficulty walking, frequent falls, dizziness, vertigo, confusion, Slurred speech present, difficulty communicating thoughts or seizure-like activity Psych: Denies: anxiety, depression, mood swings, panic attacks, hopelessness or irritability Endo: Denies: polyuria, polydipsia, tired all the time, cold intolerance, excessive sweating, flushing or heat intolerance Matias/Lymph: Denies: easy bruising or easy bleeding All/Imm: Denies: tongue swelling, facial swelling or acute wheezing Medications/Allergies Home Medications ?Medication ?Instructions ?Recorded ?Confirmed ?Last Taken ?Type Myloc Cr 47.5 mg PO QID 12/31/2406/2102/01/25 History rivaroxaban 20 mg tablet (Xarelto) 20 mg PO DAILY 02/1902/01/25 02/01/25 History Allergies Allergy/AdvReac Type Severity Reaction Status Date / Time Penicillins Allergy ADR-Nausea Verified 12/31/24 10:06 PFSH Acute 2 PFSH: Medical History (Updated 02/01/25 @ 17:05 by Roger Montero MD) Atrial fibrillation status post cardioversion Atrial fibrillation Family History (Updated 02/01/25 @ 17:05 by Roger Montero MD) Denies family history of CAD (coronary artery disease) Cancer Social History (Updated 02/01/25 @ 17:06 by Roger Montero MD) Smoking and tobacco/nicotine status: never used tobacco/nicotine Second hand smoke exposure: No Alcohol intake: never Caregiver/support person: Yes Lives independently: Yes Household members: family Housing: House Marital status: Vitals/I&O/Wt Last Vital Signs Temp 97.8 F 02/01/25 11:44 Pulse 87 02/01/25 15:49 Resp 18 02/01/25 13:15 BP 109/75 02/01/25 15:03 Pulse Ox 98 02/01/25 16:11 O2 Del Method Room Air 02/01/25 16:11 02/01/25 02/01/25 02/01/25 06:59 14:59 22:59 Intake Total 6.958 / 6.958 34.542 / 41.500 Balance 6.958 / 6.958 34.542 / 41.500 Weight last 48 hrs Weight 68.039 kg Physical Exam 2 Narrative: General: No acute distress, AO x3, anxious HEENT: PERRLA, pupils bilaterally equal and reactive Chest: Normal vesicular breath sounds, no added sounds, equal good air entry bilaterally CVS: S1-S2 irregularly irregular, no murmurs, tachycardia, no gallops, no rubs Abdomen: Soft, nontender, no organomegaly, bowel sounds present Neuro: No focal deficits, no facial deformity, AO x3, power 5/5 in all limbs Data 02/01/25 11:57 02/01/25 11:57 A&P Assessment and plan (1) Atrial fibrillation with rapid ventricular response: Takes metoprolol succinate 47.5 mg twice daily. Supposed to be on thrice daily. Frequency decreased within last 1 month by the ER physician for bradycardia on previous presentation. Currently on Cardizem drip. Titrate Cardizem drip up to 15. Target heart rate below 90. If heart rate does not improve will plan to switch over to amiodarone drip. Start on metoprolol 25 mg twice daily. Goal blood pressure less than 140/90 mmHg. Will uptitrate accordingly. Take Xarelto at home. For now we will switch to full dose Lovenox 1 mg/kg body weight Q12 hourly. Echocardiogram. Check TSH, urine drug screen. (2) Chronic anticoagulation: Plan Full code Full dose Lovenox sufficient for DVT prophylaxis Famotidine for PUD prophylaxis cardiac diet. PDMP PDMP Reviewed: Not Reviewed Attestations 2 Medical Necessity Statement*: Requires admission for more than 2 midnights for management of A-fib with RVR requiring Cardizem drip. Diagnoses Atrial fibrillation with rapid ventricular response I48.91 Chronic anticoagulation Z79.01
--- NOTE | 2025-02-01 17:44 | PC.NURSE ---
report called to FLAKITA Bellamy on [facility]. request to take to floor after 1809.
[2025-02-01] MEDS: dilTIAZem 100 MG in sodium chloride 0.9% (add-van) 100 ML 15 MG IV (18:40)
--- NOTE | 2025-02-01 23:20 | PC.NURSE ---
1945- Patient requesting to take her home rivaroxaban 20 mg and does not want lovenox. Patient has some anxiety with new medications. Per Dr. Montero he will talk to her in AM and ordered xanax one time prn. Patient refused xanax.
[2025-02-02] VITALS (26 sets, daily range): BP systolic 91–143; BP diastolic 49–99; PULSE 77–124; RESP 17–30; TEMP 36.6–37.3; O2SAT 89–96
[2025-02-02 05:21] LABS: Basophils # 0.1 10^3/uL (0.0-0.1); Basophils % 0.9 %; Eosinophils # 0.2 10^3/uL (0.0-0.8); Eosinophils % 2.3 %; Hematocrit 37.1 % (36-47); Lymphocytes % 34.1 %; Mean Corpuscular HGB Conc 32.1 g/dL (30-55); Mean Corpuscular Hemoglobin 29.1 pg (27-33); Mean Corpuscular Volume 90.7 fl (85-98); Mean Platelet Volume 9.6 fL (7.4-10.4); Monocytes # 0.8 10^3/uL (0.2-0.9); Monocytes % 9.4 %; Neutrophils # 4.58 10^3/uL (1.8-7.7); Neutrophils % 52.8 %; Nucleated Red Blood Cells % 0 %; Platelet Count 245 10^3/cmm (157-399); Red Blood Count 4.09 10^6/uL (3.85-5.65); Red Cell Distribution Width 14.2 % (12.1-15.1); White Blood Count 8.66 10^3/uL (3.29-11.43)
[2025-02-02 05:48] LABS: Alanine Aminotransferase 37 U/L (0-33); Alkaline Phosphatase 70 U/L (35-105); Aspartate Amino Transferase 22 U/L (0-32); Blood Urea Nitrogen 17 mg/dL (6-20); Calcium 9.1 mg/dL (8.5-10.5); Carbon Dioxide 23 mmol/L (22-29); Chloride 107 mmol/L (98-107); Chol HDL Ratio 3.62 mg/dL (0.0-4.40); Cholesterol 188 mg/dL (0-200); Creatinine Clr Calc Pharmacy 146.5038; Globulin 2.6 g/dL (1.3-4.6); Glomerular Filtration Rate 133.4 mL/min (90-130); Glucose 101 mg/dL (65-115); HDL Cholesterol 52 mg/dL (60-100); LDL Cholesterol Calculated 120 mg/dL (50-129); LDL HDL Ratio 2.31 RATIO (0.00-3.22); Osmolality Calculated 292 mOsm/kg (285-295); Sodium 140 mmol/L (136-145); Total Bilirubin 0.5 mg/dL (0.15-1.2); Total Protein 6.6 g/dL (6.6-8.7); Triglycerides 80 mg/dL (0-150)
[2025-02-02 05:49] LABS: Procalcitonin 0.05 ng/mL (0-0.5)
[2025-02-02 05:57] LABS: Folate Level 5.8 ng/mL (4.8-37.3)
[2025-02-02] MEDS: dilTIAZem 100 MG in sodium chloride 0.9% (add-van) 100 ML 7.5 MG IV (08:39)
[2025-02-02] MEDS: metoprolol tartrate 25 mg Tablet PO ×2 (08:55→11:24)
[2025-02-02] MEDS: docusate sodium 100 mg Capsule PO ×2 (08:55→17:40)
--- NOTE | 2025-02-02 10:40 | PC.CHAP ---
Pastoral Care Encounter/Spiritual Assessment Type of Contact [] Declined compliance investigator visit [] Patient/Family/Request visit [] Outpatient visit [] Follow-up visit [] Physician referral [] Code/Alert [X] Routine visit [] Staff referral [] Actively dying [] Patient sleeping [] Family support [] [] Out of room [] Palliative care [] [] Receiving care in room [] Pre-surgical visit [] Trauma [] Long length of stay [] ICU visit [] Other: Relational/Emotional Strength [X] Patient feels connected with others/family/visitors/staff [] Distress [] Loneliness/isolation [] Abandonment Spirituality of Patient [] Person of Aimee [] Attends Gnosticist of their Aimee [X] Believes in Prayer [] Reads Bible or Christian materials [X] There are Spiritual issues to be addressed [employer] Interventions [X] Prayer [X] Active listening [] Non-anxious presence [] Spiritual/emotional support [] Crisis/trauma care [] Spiritual counseling [] Bereavement support [] Provided bereavement packet [] Provided Bible/devotional materials [] Provided toy/stuffed animal, coloring book to patient or family member [] Provided Communion [] Anointing/[place] [] Salvation [] Completed spiritual assessment [] Other: Impact on Illness or Injury [] Angry [] Fearful [X] Anxious [] Often cries [] Exhaustion [] Unable to work [] Unable to attend orthodox [] Unable to walk/stand [] Unable to read [] Unable to drive [] Unable to eat/drink [] Unable to sleep [] Unable to be with family [] Patient intubated [] Other: Summary P+Staff Time spent with patient 10 Min
[2025-02-02] MEDS: FUROsemide 10 mg/mL SDV 4mL 20 MG IVP (11:24)
[2025-02-02] MEDS: dilTIAZem 30 mg Tablet PO ×3 (11:24→21:37)
[2025-02-02] MEDS: rivaroxaban 10 mg Tablet 20 MG PO (11:24)
--- NOTE | 2025-02-02 17:05 | P.PN_ITS ---
Subjective 2 Subjective: No acute events overnight. It seems Cardizem drip was weaned down to 2.5 but earlier in the morning remained tachycardic again after waking up and was increased to 10. Currently Cardizem drip running at 10 with heart rate running in low 90s. Seen with patient's father at bedside. She states she is feeling better. Remains on room air. Vitals/I&O/Wt Last Vital Signs Temp 98.0 F 02/02/25 12:00 Pulse 79 02/02/25 12:00 Resp 26 H 02/02/25 12:00 BP 114/73 02/02/25 12:00 Pulse Ox 96 02/02/25 12:00 O2 Del Method Room Air 02/02/25 12:00 02/02/25 02/02/25 02/02/25 06:59 14:59 22:59 Intake Total 228.041 / 372.416 258.375 / 258.375 Output Total 150 / 150 Balance 78.041 / 222.416 258.375 / 258.375 Weight last 48 hrs Weight 84.686 kg Weight 68.039 kg Physical Exam 2 Narrative: General: No acute distress, AO x3, anxious HEENT: PERRLA, pupils bilaterally equal and reactive Chest: Normal vesicular breath sounds, no added sounds, equal good air entry bilaterally CVS: S1-S2 irregularly irregular, MDM at mitral region with MEG at apex radiating to ant axillary line, tachycardia, no gallops, no rubs Abdomen: Soft, nontender, no organomegaly, bowel sounds present Neuro: No focal deficits, no facial deformity, AO x3, power 5/5 in all limbs Data 02/02/25 05:07 02/02/25 05:07 A&P Assessment and plan (1) Atrial fibrillation with rapid ventricular response: Takes metoprolol succinate 47.5 mg twice daily. Supposed to be on thrice daily. Frequency decreased within last 1 month by the ER physician for bradycardia on previous presentation. Currently on Cardizem drip. Wean Cardizem drip keeping heart rate between 60 to 100 bpm. Start on oral Cardizem 30 mg every 6 hour. Increase metoprolol to 50 mg twice daily. Goal blood pressure less than 140/90 mmHg. Will uptitrate accordingly. Continue with Xarelto as home dose. Echocardiogram appreciated. (2) Chronic anticoagulation: (3) Congestive heart failure: IV Lasix 20 mg one-time. Strict input output charting, daily weights. Fluid restriction to less than 1500 cc. (4) Mitral stenosis with regurgitation: Seen on echocardiogram. Patient will need to follow-up with cardiology team as an outpatient for further management. Plan Full code Xarelto sufficient for DVT prophylaxis Famotidine for PUD prophylaxis cardiac diet. PDMP PDMP Reviewed: Not Reviewed Attestations 2 Medical Necessity Statement*: Requires further hospitalization for management of A-fib with RVR while Cardizem drip is being weaned off, new diagnosis congestive heart failure with moderate mitral stenosis Diagnoses Atrial fibrillation with rapid ventricular response I48.91 Chronic anticoagulation Z79.01 Congestive heart failure I50.9 Mitral stenosis with regurgitation I05.2
[2025-02-02] MEDS: famotidine 20 mg Tablet PO (17:41)
[2025-02-02] MEDS: FUROsemide 20 mg Tablet PO (17:41)
--- NOTE | 2025-02-02 19:47 | PC.NURSE ---
Notified Dr. Piedra that patient HR is 120-150s and patient is experiencing palpitation. Recieved orders to give 30 mg PO cardizem now, restart her back on cardizem gtt at 5, and increase next dose to 60 mg PO cardizem.
[2025-02-02] MEDS: metoprolol tartrate 25 mg Tablet 50 MG PO (21:27)
[2025-02-03] VITALS (14 sets, daily range): BP systolic 94–112; BP diastolic 42–74; PULSE 67–105; RESP 16–32; TEMP 36.6; O2SAT 90–96
[2025-02-03] MEDS: dilTIAZem 60 mg Tablet PO ×2 (03:26→08:48)
[2025-02-03 05:37] LABS: Basophils # 0.1 10^3/uL (0.0-0.1); Eosinophils # 0.2 10^3/uL (0.0-0.8); Eosinophils % 2.4 %; Hematocrit 39.6 % (36-47); Lymphocytes # 2.9 10^3/uL (0.8-4.8); Mean Corpuscular HGB Conc 32.6 g/dL (30-55); Mean Corpuscular Hemoglobin 29.7 pg (27-33); Mean Platelet Volume 9.7 fL (7.4-10.4); Monocytes # 0.9 10^3/uL (0.2-0.9); Monocytes % 9.2 %; Neutrophils # 5.24 10^3/uL (1.8-7.7); Nucleated Red Blood Cells % 0 %; Platelet Count 250 10^3/cmm (157-399); Red Blood Count 4.35 10^6/uL (3.85-5.65); White Blood Count 9.35 10^3/uL (3.29-11.43)
[2025-02-03 05:56] LABS: Alanine Aminotransferase 35 U/L (0-33); Albumin Level 4.3 g/dL (3.5-5.2); Alkaline Phosphatase 73 U/L (35-105); Aspartate Amino Transferase 22 U/L (0-32); Blood Urea Nitrogen 20 mg/dL (6-20); Calcium 9.4 mg/dL (8.5-10.5); Carbon Dioxide 25 mmol/L (22-29); Chloride 101 mmol/L (98-107); Creatinine Clr Calc Pharmacy 146.5038; Glomerular Filtration Rate 133.4 mL/min (90-130); Glucose 100 mg/dL (65-115); Osmolality Calculated 287 mOsm/kg (285-295); Phosphorus 4.9 mg/dL (2.5-4.5); Sodium 137 mmol/L (136-145); Total Bilirubin 0.6 mg/dL (0.15-1.2); Total Protein 7.3 g/dL (6.6-8.7)
[2025-02-03 05:59] LABS: Anion Gap 14.7 (5-19); Potassium 3.7 mmol/L (3.5-5.1)
[2025-02-03] MEDS: rivaroxaban 10 mg Tablet 20 MG PO (08:48)
[2025-02-03] MEDS: famotidine 20 mg Tablet PO (08:48)
[2025-02-03] MEDS: metoprolol tartrate 25 mg Tablet 50 MG PO (08:48)
[2025-02-03] MEDS: docusate sodium 100 mg Capsule PO (08:48)
--- NOTE | 2025-02-03 10:22 | P.DS_ITS ---
Discharge Providers Date of Admission: 02/01/25 13:17 Date of Discharge: February 03, 2025 Attending Provider at Admission: Veronika Turcios MD Attending Provider at Discharge: Roger Montero MD Diagnoses at Discharge Discharge Diagnosis (1) Atrial fibrillation with rapid ventricular response: Status: Acute (2) Chronic anticoagulation: Status: Acute (3) Congestive heart failure: Status: Acute (4) Mitral stenosis with regurgitation: Status: Acute Reason for Visit Reason for Visit: high heart rate Hospital Course Hospital Course Stephanie Chang is a 45 year old female who recently moved from [facility] to [place] in October 2024 with past medical history of atrial fibrillation post cardioversion back in 2023, possible history of some pediatric cardiac dolan rgery(further details currently not available) presents to the ER because of palpitations which has been ongoing since last night. When she checked her heart rate at home which was more than 110 sociability the ER. Patient was in the ER last month with palpitations as well when she was found to have bradycardia and her dose of metoprolol was decreased at that time. Patient has prescriptions from nasal end. It seems she is supposed to take metoprolol succinate 47.5 mg 3 times a day but was decreased up to 2 times a day in December 2024. In the ER she was found to be having atrial fibrillation with rapid ventricular response and she was placed on Cardizem drip. Currently on Cardizem drip of 12.5 with heart rate running in low 90s to low 100s. Saturating well on room air. Denies any nausea, vomiting, headache, chest pain. Patient is going to the hospital for evaluation and management of A-fib with RVR. She was continued on Cardizem drip. Her heart rate was difficult to control. Multiple treatment modalities including possibility of starting on amiodarone drip were discussed in detail with the patient though she was hesitant given concerns for possible liver toxicity. Eventually dose of Cardizem was increased and was transitioned to oral Cardizem. Her heart rate currently on metoprolol 50 mg twice daily along with Cardizem 300 mg oral daily has been maintained between low 90s to low 100s. Echocardiogram was done which showed an EF of 40% with moderate MS and moderate MR. She has an appointment with cardiology team later this month with Dr. Rodriges. She has been discharged in hemodynamically stable condition on oral metoprolol 50 mg twice daily, oral Cardizem 300 mg oral daily in afternoon, continuing Xarelto 20 mg oral daily. She is also been discharged on oral Lasix 20 mg oral daily as needed for increase in weight by 3 pounds with difficulty in breathing. She was counseled in detail about lifestyle modification with congestive heart failure. Physical Exam Narrative: General: No acute distress, AO x3, anxious HEENT: PERRLA, pupils bilaterally equal and reactive Chest: Normal vesicular breath sounds, no added sounds, equal good air entry bilaterally CVS: S1-S2 irregularly irregular, MDM at mitral region with MEG at apex radiating to ant axillary line, tachycardia, no gallops, no rubs Abdomen: Soft, nontender, no organomegaly, bowel sounds present Neuro: No focal deficits, no facial deformity, AO x3, power 5/5 in all limbs Discharge Data Studies Completed and Pending Completed Studies During Hospitalization Category Date Time Status XR chest 1V portable [id number] Stat Exams 02/01/25 11:58 Completed CV. echo complete* [id number] Routine Ultrasound 02/01/25 15:02 Completed Pending at discharge Category Date Time Status Complete Blood Count w/Auto AM LABS Lab 02/04/25 04:00 Ordered Comprehensive Metabolic Panel AM LABS Lab 02/04/25 04:00 Ordered Magnesium AM LABS Lab 02/04/25 04:00 Ordered Phosphorus AM LABS Lab 02/04/25 04:00 Ordered Radiology Impressions Chest X-Ray 02/01/25 11:58 IMPRESSION: Question of congenital variant of the aortic arch and great vessel. Significant cardiomegaly. No acute pulmonary parenchymal or pleural abnormality. Echocardiogram: CONCLUSIONS Technically limited echocardiogram because of poor ultrasonic windows. . LV systolic function is mildly reduced with EF of 40-45% Moderate mitral regurgitation. Moderate mitral stenosis with mean gradient across mitral valve of 8.8mmHg. Mild tricuspid regurgitation. Mild pulmonary hypertension Mild pulmonic regurgitation. No comparison studies are available. Darian Mccracken MD (Electronically Signed) Final Date: 02 February 2025 Laboratory Results WBC 9.35 10^3/uL (3.29-11.43) 02/03/25 04:48 RBC 4.35 10^6/uL (3.85-5.65) 02/03/25 04:48 Hgb 12.90 g/dL (11.27-16.99) 02/03/25 04:48 Hct 39.6 % (36-47) 02/03/25 04:48 MCV 91.0 fl (85-98) 02/03/25 04:48 MCH 29.7 pg (27-33) 02/03/25 04:48 MCHC 32.6 g/dL (30-55) 02/03/25 04:48 RDW 14.0 % (12.1-15.1) 02/03/25 04:48 Plt Count 250 10^3/cmm (157-399) 02/03/25 04:48 MPV 9.7 fL (7.4-10.4) 02/03/25 04:48 Neut % (Auto) 56.0 % 02/03/25 04:48 Lymph % (Auto) 31.0 % 02/03/25 04:48 Rincon % (Auto) 9.2 % 02/03/25 04:48 Eos % (Auto) 2.4 % 02/03/25 04:48 Baso % (Auto) 1.0 % 02/03/25 04:48 Neut # (Auto) 5.24 10^3/uL (1.8-7.7) 02/03/25 04:48 Lymph # (Auto) 2.9 10^3/uL (0.8-4.8) 02/03/25 04:48 Rincon # (Auto) 0.9 10^3/uL (0.2-0.9) 02/03/25 04:48 Eos # (Auto) 0.2 10^3/uL (0.0-0.8) 02/03/25 04:48 Baso # (Auto) 0.1 10^3/uL (0.0-0.1) 02/03/25 04:48 Nucleated RBC % (auto) 0 % 02/03/25 04:48 Nucleated RBCs # 0.0 /100WBC 02/03/25 04:48 D-Dimer 0.46 ug/mLFEU (0-0.59) 02/01/25 11:57 Sodium 137 mmol/L (136-145) 02/03/25 04:48 Potassium 3.7 mmol/L (3.5-5.1) 02/03/25 04:48 Chloride 101 mmol/L (98-107) 02/03/25 04:48 Carbon Dioxide 25 mmol/L (22-29) 02/03/25 04:48 Anion Gap 14.7 (5-19) 02/03/25 04:48 BUN 20 mg/dL (6-20) 02/03/25 04:48 Creatinine 0.5 mg/dL (0.5-0.9) 02/03/25 04:48 GFR Calculation 133.4 mL/min (90-130) H 02/03/25 04:48 Glucose 100 mg/dL (65-115) 02/03/25 04:48 Estimat Average Glucose 114 02/01/25 11:57 Hemoglobin A1c 5.6 % (4.0-6.0) 02/01/25 11:57 Calculated Osmolality 287 mOsm/kg (285-295) 02/03/25 04:48 Lactic Acid 1.1 mmol/L (0.5-2.2) 02/01/25 11:57 Calcium 9.4 mg/dL (8.5-10.5) 02/03/25 04:48 Phosphorus 4.9 mg/dL (2.5-4.5) H 02/03/25 04:48 Magnesium 2.0 mg/dL (1.7-2.3) 02/03/25 04:48 Iron 76 ug/dL (37-145) 02/01/25 11:57 TIBC 302 mcg/dl 02/01/25 11:57 % Saturation 25.1 % (20-50) 02/01/25 11:57 Unsat Iron Binding 226 ug/dL (112-347) 02/01/25 11:57 Total Bilirubin 0.6 mg/dL (0.15-1.2) 02/03/25 04:48 AST 22 U/L (0-32) 02/03/25 04:48 ALT 35 U/L (0-33) H 02/03/25 04:48 Alkaline Phosphatase 73 U/L (35-105) 02/03/25 04:48 NT-Pro-B Natriuret Pep 1030 pg/mL (0-125) H 02/01/25 11:57 Total Protein 7.3 g/dL (6.6-8.7) 02/03/25 04:48 Albumin 4.3 g/dL (3.5-5.2) 02/03/25 04:48 Globulin 3.0 g/dL (1.3-4.6) 02/03/25 04:48 Triglycerides 80 mg/dL (0-150) 02/02/25 05:07 Triglycerides Cancelled 02/02/25 05:07 Cholesterol 188 mg/dL (0-200) 02/02/25 05:07 Cholesterol Cancelled 02/02/25 05:07 LDL Cholesterol, Calc 120 mg/dL (50-129) 02/02/25 05:07 LDL Cholesterol, Calc Cancelled 02/02/25 05:07 HDL Cholesterol 52 mg/dL (60-100) L 02/02/25 05:07 HDL Cholesterol Cancelled 02/02/25 05:07 LDL/HDL Ratio 2.31 RATIO (0.00-3.22) 02/02/25 05:07 LDL/HDL Ratio Cancelled 02/02/25 05:07 Cholesterol/HDL Ratio 3.62 mg/dL (0.0-4.40) 02/02/25 05:07 Cholesterol/HDL Ratio Cancelled 02/02/25 05:07 Vitamin B12 1037 pg/mL (232-1245) 02/01/25 11:57 Folate 5.8 ng/mL (4.8-37.3) 02/02/25 05:07 Procalcitonin 0.05 ng/mL (0-0.5) 02/02/25 05:07 Procalcitonin Cancelled 02/02/25 05:07 TSH 1.13 uIU/mL (0.27-4.20) 02/01/25 11:57 TSH 1.13 uIU/mL (0.27-4.20) 02/01/25 11:57 Urine Color Yellow (Yellow) 02/01/25 12:49 Urine Appearance Clear (CLEAR) 02/01/25 12:49 Urine pH 5.5 (5-7) 02/01/25 12:49 Ur Specific [place] 1.012 (1.005-1.030) 02/01/25 12:49 Urine Protein Negative (Negative) 02/01/25 12:49 Urine Glucose (UA) Negative (Normal) 02/01/25 12:49 Urine Ketones Negative (Negative) 02/01/25 12:49 Urine Blood Negative (Negative) 02/01/25 12:49 Urine Nitrate Negative (Negative) 02/01/25 12:49 Urine Bilirubin Negative (Negative) 02/01/25 12:49 Urine Urobilinogen 1.0 mg/dL (Negative) 02/01/25 12:49 Ur Leukocyte Esterase Trace (Negative) A 02/01/25 12:49 Urine RBC 0-2 /hpf (0-2) 02/01/25 12:49 Urine WBC 6-10 /hpf (0-5) 02/01/25 12:49 Ur Squamous Epith Cells 0-5 /hpf (0-5) 02/01/25 12:49 Amorphous Sediment Not Reportable 02/01/25 12:49 Urine Bacteria None seen /hpf (NONE) 02/01/25 12:49 Hyaline Casts 0-4 /lpf H 02/01/25 12:49 Urine Opiates Screen Negative ng/mL (Negative) 02/01/25 12:49 Ur Barbiturates Screen Negative ng/mL (Negative) 02/01/25 12:49 Ur Phencyclidine Scrn Negative ng/mL (Negative) 02/01/25 12:49 Ur Amphetamines Screen Negative ng/mL (Negative) 02/01/25 12:49 U Benzodiazepines Scrn Negative ng/mL (Negative) 02/01/25 12:49 Urine Cocaine Screen Negative ng/mL (Negative) 02/01/25 12:49 U Marijuana (THC) Screen Negative ng/mL (Negative) 02/01/25 12:49 Vitals Last Vital Signs Temp 97.9 F 02/03/25 08:00 Pulse 105 H 02/03/25 08:00 Resp 20 H 02/03/25 08:00 BP 108/73 02/03/25 08:00 Pulse Ox 94 02/03/25 08:00 O2 Del Method Room Air 02/03/25 08:00 Discharge Plan Discharge Patient Disposition: Home Condition: Stable Prescriptions: New metoprolol tartrate 50 mg tablet 50 mg PO BID Qty: 60 0RF diltiazem HCl [Cardizem CD] 300 mg capsule,extended release 24hr 300 mg PO Q24H Qty: 30 0RF furosemide [Lasix] 20 mg tablet 20 mg PO QAM PRN (Reason: weight gain) Qty: 14 0RF Continued Xarelto 20 mg Tablet 20 mg PO DAILY Rx Instructions: must administer with evening meal Discontinued Myloc Cr 47.5 mg PO QID Discharge Orders: Discharge Order (Routine); Ordered 02/03/25 Ordered By: Roger Montero Referrals: Mariam Levy [Emergency Department] - (Please call for an follow-up appointment within 4 to 7 days. Thank you ) Discharge Diet: Cardiac Discharge Activity: Resume usual activity and Increase activity as tolerated Patient Instructions: Metoprolol (By mouth) (Lopressor, Toprol XL), Diltiazem (By mouth) (Cardizem, Cardizem CD, Cardizem LA, Cardizem SR), Furosemide (By mouth) (Lasix), A-fib (Atrial Fibrillation) (DC), Mitral Stenosis (DC), CHF Stoplight, Opioid Safety Activity Restrictions/Additional Instructions: Restrict fluid intake to less than 1500 cc, salt intake to less than 2 g daily. Advised to check his weight daily at home. Is advised that weight today would be the dry weight and if body weight increases by around 3 pounds, patient is to take an extra dose of Lasix daily till body weight comes down to weight today. If not able to come down to dry body weight in 1 week, then is to call cardiology office for further recommendations. Patient was counseled in detail to take medications regularly as prescribed. Please follow-up with a primary care provider within next 2 weeks. Please follow-up with the cardiology appointment on the set date. Please check your blood pressure daily at home maintain blood pressure diary. Goal blood pressure less than 140/90 mmHg. Take metoprolol twice daily, morning and evening 50 mg. Take Cardizem 300 mg every afternoon. Discharge Attestations Time Spent in Discharge Care*: greater than 30 min Specific Discharge Activities: educating patient, discussing with pcp/other providers, discussing with senior case manager/social workers/dc planners, documenting/other paperwork and evaluating patient/reviewing data Status at Discharge: Cognitive status at discharge: cognitively intact , Behavioral status at discharge: cooperative , Functional status at discharge: independent ambulation , Overall status at discharge: patient is back to baseline Quality Metrics Clinical Quality Measures [ No reported AMI, CVA or VTE this stay] Coding Level of Care Code 32489 Total time (in minutes) for Discharge: 70 Diagnoses Atrial fibrillation with rapid ventricular response I48.91 Chronic anticoagulation Z79.01 Congestive heart failure I50.9 Mitral stenosis with regurgitation I05.2
--- NOTE | 2025-02-03 13:10 | PC.NURSE ---
Patient called and said that [facility] pharmacy is not open today and asked to have her medications called to [facility] pharmacy in [place].
== END 2025-02-03 12:28 | disposition home or self-care (01) | DRG 310 ==
LOC: ER 12:43 → ER IP 13:18 → CSU 16:00
PROVIDERS: Admitting Provider Student in an Organized Health Care Education/Training Program; Emergency Provider Emergency Medicine; Visit Provider Student in an Organized Health Care Education/Training Program
DX: I48.0 Paroxysmal atrial fibrillation (principal); Z79.01 Long term (current) use of anticoagulants; I50.9 Heart failure, unspecified; I34.0 Nonrheumatic mitral (valve) insufficiency; R00.0 Tachycardia, unspecified
CPT/HCPCS: 36415; 71045; 80053; 80061; 80306; 81001; 82607; 82746; 83036; 83540; 83550; 83605; 83735; 83880; 84100; 84145; 84443; 85025; 85378; 93005; 93306; 94664; 96365; 96366; 96375; 96376; 99285; A9270; J1940; J3490; J9999